=== PATIENT | male | born 1985 | race Caucasian/White ===

== ENCOUNTER 2018-06-17 14:53 | Emergency (ER) | payer SELFPAY ==
[~2018-06-17] VITALS: Wt 104.8 kg
[2018-06-17 15:19] VITALS: BP 159/93; PULSE 85; RESP 20
[2018-06-17] MEDS ORDERED: LIDOCAINE 1% (MDV) 10 ML INJ INJ STA (16:03)
[2018-06-17] MEDS ORDERED: DIPHTH/TET/ACEL PERTUSS (ADULT) 0.5 ML VIAL IM* ONE (16:30)
[2018-06-17] MEDS ORDERED: HYDROCODONE/APAP (5/325) TAB PO ONE (16:30)
[2018-06-17] MEDS ORDERED: LIDOCAINE 1% (MDV) 20 ML INJ SC ONE (16:30)
[2018-06-17] MEDS ORDERED: HYDR-4011 PO (17:06)
[2018-06-17] MEDS ORDERED: IBUP800T48 PO (17:06)
--- NOTE | 2018-06-17 17:09 | ERD ---
ER Documentation Chief Complaint Chief Complaint R thumb lac w table saw x1hr. tetanus shot > 5yago HPI This is a [id number] 32-year-old male who presents with laceration to his right thumb that was sustained today with a table saw about 1 hour prior to arrival. He is unsure of his last tetanus vaccination. He has no numbness and tingling but describes a throbbing pain at the site of the laceration. Denies possibility of retained foreign body. Denies any loss of range of motion. Has not taken any medication for pain. ROS All systems reviewed and are negative except as per history of present illness. Medications Home Meds Active Scripts Hydrocodone/Acetaminophen (Union 5-325 Tablet) 1 Each Tablet, 1 TAB PO Q6H PRN for PAIN, #15 TAB Prov:MARYAM SULLIVAN PA-C 06/17/18 Ibuprofen* (Motrin*) 800 Mg Tab, 800 MG PO Q6, #30 TAB Prov:MARYAM SULLIVAN PA-C 06/17/18 Allergies Allergies: Coded Allergies: No Known Allergy (Unverified , 06/17/18) PMhx/Soc Medical and Surgical Hx: pt denies Medical Hx, pt denies Surgical Hx Hx Alcohol Use: No Hx Substance Use: No Hx Tobacco Use: No Smoking Status: Never smoker FmHx Family History: No diabetes Physical Exam Vitals Vital Signs Date Temp Pulse Resp B/P (MAP) Pulse Ox O2 O2 Flow FiO2 Time Delivery Rate 06/17/18 97.7 85 20 159/93 95 15:19 (115) Physical Exam Const: No acute distress Head: Atraumatic Eyes: Normal Conjunctiva Resp: Clear to auscultation bilaterally Cardio: Regular rate and rhythm, no murmurs Hand -right: Skin: 2 inch laceration on the pad surface of right thumb and distally extending to just about the DIP joint Compartments: Soft Sensation: Intact shoulder/pinky/middle finger/thumb web space Bones: Nontender Snuffbox: Nontender Joints: No effusion Thumb: Flex/Ext: Normal Opposition: Normal Thumbs up: Normal Results 24 hrs Current Medications Medications Dose Sig/Liban Start Time Status Last (Trade) Ordered Route PRN Stop Time Admin Dose Reason Admin Diphtheria/ 0.5 ml ONCE ONCE 06/17/18 DC 06/17/18 Tetanus/Acell IM* 16:30 06/17/18 16:16 Pertussis 16:31 (Adacel) Lidocaine 10 ml ONCE STAT 06/17/18 Cancel HCl INJ 16:03 06/17/18 (Lidocaine 16:04 1% (Mdv) 10 ml) 1 tab ONCE ONCE 06/17/18 DC 06/17/18 Acetaminophen PO 16:30 06/17/18 16:22 / 16:31 Hydrocodone Bitart (Union (5/325)) Lidocaine 20 ml ONCE ONCE 06/17/18 DC (Xylocaine SC 16:30 06/17/18 1% (Mdv) 20 16:31 ml) Procedures/MDM The skin edges of the laceration were infiltrated with 1% lidocaine . The laceration was irrigated with copious amounts of normal saline. The wound was prepped with Betadine. On examination under direct light, there was no foreign body seen. The laceration was repaired with simple interrupted sutures. After repair, there was no continuing bleeding on repair and there did not appear to be any complication related to repair. The patient tolerated the procedure well and the wound was appropriately dressed and bandaged. I recommended the patient return in 2 days for a wound check and 7-10 days for removal of sutures. X-rays negative. He has full range of motion in the finger in all directions. Low suspicion for tendon injury. Finger splint applied post laceration repair. Tetanus vaccination given. Prescription for ibuprofen and Union given. Patient counseled regarding my diagnostic impression and care plan. Prior to discharge all questions answered. Pt agrees with treatment plan and understands strict return precautions. Pt is instructed to follow up with primary care provider within 24-48 hours. Precautionary instructions provided including instructions to return to the ER if not improving or for any worsening or changing symptoms or concerns. Departure Diagnosis: Primary Impression: Finger laceration Condition: Stable Patient Instructions: Laceration, All Additional Instructions: Call your primary care doctor TOMORROW for an appointment during the next 1-2 days.See the doctor sooner or return here if your condition worsens before your appointment time. Follow up with your physician to remove the stitches:For Face wounds 5-7 days.Fo r Elsewhere on the body 7-10 days. MARYAM SULLIVAN PA-C June 17, 2018 17:09
== END 2018-06-17 17:19 | disposition home or self-care (01) ==
LOC: FTE 14:53
DX: S61.011A Laceration without foreign body of right thumb without damage to nail, initial encounter (principal); W27.0XXA Contact with workbench tool, initial encounter; Y92.9 Unspecified place or not applicable; Z23 Encounter for immunization
CPT/HCPCS: 73140; 90471; 90715